=== PATIENT | female | born 1990 ===

== ENCOUNTER 2017-04-09 12:19 | Emergency (ER) | payer MEDICAID ==
[2017-04-09 12:19] VITALS: BMI 24.9
[2017-04-09 12:26] VITALS: BP 125/80; PULSE 86; RESP 16; TEMP 98.3; O2SAT 100
--- NOTE | 2017-04-09 12:38 | ED PDOC ---
HPI: CCC, URI, Sore Throat Time Seen by Provider: 04/09/17 12:32 Chief Complaint (Nursing): ENT Problem History Per: Patient Additional Complaint(s): Pt. states for the past 3 days she's had a sore throat along with losing her voice. States that she has not taken any medications to help relieve symptoms. Denies fever, cough, congestion, rash, abdominal pain, sick contacts, recent travel. Past Medical History Reviewed: Historical Data, Nursing Documentation, Vital Signs Vital Signs: Last Vital Signs Temp 98.3 F 04/09/17 12:23 Pulse 86 04/09/17 12:23 Resp 16 04/09/17 12:23 BP 125/80 04/09/17 12:23 Pulse Ox 100 04/09/17 12:37 - Medical History PMH: Asthma - Family History Family History: States: Unknown Family Hx - Home Medications Home Medications: Ambulatory Orders Medication Instructions Recorded Albuterol Sulfate [Albuterol 3 ml IH QID PRN #30 roxy 09/25/14 Sulfate 2.5mg/3 ml 0.083%] Oseltamivir [Tamiflu] 75 mg PO DAILY 7 Days 09/25/14 Albuterol Sulfate [Ventolin Hfa] 2 puff IH QID PRN #1 unit 06/21/15 Amoxicillin [Amoxil] 875 mg PO BID #14 tab 09/14/15 Loratadine/Pseudoephedrine S 1 t12 PO BID #20 t12 09/14/15 [Claritin-D 12Hr 5 mg-120 mg] Azithromycin [Zithromax Z-Jose] 250 mg PO DAILY #5 tab 12/01/15 Dextromethorphan HBr [Cough 15 mg PO BID #10 capsule 12/01/15 Control] Albuterol HFA [Ventolin HFA 90 2 puff IH [id number] PRN #60 puff 08/12/16 mcg/actuation (8 g)] Naproxen 500 mg PO BID PRN #30 tab 08/12/16 Cephalexin [Keflex] 1 tab PO QID #28 capsule 11/12/16 Naproxen [Naprosyn] 500 mg PO BID PRN #30 tab 04/09/17 - Allergies Allergies/Adverse Reactions: Allergies Allergy/AdvReac Type Severity Reaction Status Date / Time fruits Allergy URTICARIA Uncoded 04/09/17 12:23 Review of Systems ROS Statement: Except As Marked, All Systems Reviewed And Found Negative ENT: Positive for: Throat Pain Physical Exam - Physical Exam Appears: Positive for: Well, Non-toxic, No Acute Distress Skin: Positive for: Normal Color, Warm. Negative for: Rash Eye Exam: Positive for: EOMI, Normal appearance, PERRL ENT: Positive for: TM Is/Are (non-erythematous, non-bulging b/l), Pharyngeal Erythema. Negative for: Nasal Congestion, Tonsillar Exudate, Tonsillar Swelling Neck: Positive for: Normal, Painless ROM Cardiovascular/Chest: Positive for: Regular Rate, Rhythm Respiratory: Positive for: Normal Breath Sounds. Negative for: Stridor Gastrointestinal/Abdominal: Positive for: Normal Exam, Soft. Negative for: Tenderness, Organomegaly Neurologic/Psych: Positive for: Alert, Oriented. Negative for: Aphasia, Facial Droop - ECG O2 Sat by Pulse Oximetry: 100 - Progress ED Course And Treament: Rapid strep: negative. Disposition - Clinical Impression Clinical Impression: Viral pharyngitis - Patient ED Disposition Is Patient to be Admitted: No - Disposition Referrals: [facility] [Outside] Disposition: Routine/Home Disposition Time: 13:28 Condition: STABLE Additional Instructions: Drink plenty of fluids. Do warm salt water gargles. Voice rest. Follow up with [facility] for further evaluation. Prescriptions: Naproxen [Naprosyn] 500 mg PO BID PRN #30 tab PRN Reason: Pain Instructions: Viral Syndrome (ED) Forms: [facility] ED School/Work Excuse Print Language: GABONESE
== END 2017-04-09 13:47 | disposition home or self-care (01) ==
LOC: H.ER 12:19
DX: J02.8 Acute pharyngitis due to other specified organisms (principal); J45.909 Unspecified asthma, uncomplicated

== ENCOUNTER 2017-06-15 11:48 | Emergency (ER) | payer MEDICAID ==
[2017-06-15 11:48] VITALS: BMI 24.9
[2017-06-15 12:04] VITALS: TEMP 97
[2017-06-15] MEDS ORDERED: Alum-Mag Hydrox-Simethicone Susp (30 mL) PO ONE (12:15)
[2017-06-15] MEDS ORDERED: Sodium Chloride 0.9% 1,000 ML IV STA (12:15)
--- NOTE | 2017-06-15 12:19 | ED PDOC ---
HPI: General Adult Time Seen by Provider: 06/15/17 12:06 Chief Complaint (Nursing): Abdominal Pain History Per: Patient Additional Complaint(s): Pt. states for the past 4 days she's had a constant sharp non-radiating epigastric pain. Reports pain is worse after eating. She has taken Pepto Bismol without any relief. Denies N/V/D, chest pain, SOB, fever, back pain. Last BM was today and was normal. Past Medical History Reviewed: Historical Data, Nursing Documentation, Vital Signs Vital Signs: Last Vital Signs Temp 97.0 F L 06/15/17 12:02 Pulse 101 H 06/15/17 12:02 Resp 16 06/15/17 12:02 BP 122/71 06/15/17 12:02 Pulse Ox 99 06/15/17 13:25 - Medical History PMH: Asthma - Surgical History Other surgeries: laser kidney surgery @ 7 y/o for frequent UTIs - Family History Family History: States: No Known Family Hx - Social History Current smoker - smoking cessation education provided: Yes SMOKER/PACKS PER DAY:: 1 (x 10 years) Alcohol: Other (7 drinks per week) - Home Medications Home Medications: Ambulatory Orders Medication Instructions Recorded Albuterol Sulfate [Albuterol 3 ml IH QID PRN #30 roxy 09/25/14 Sulfate 2.5mg/3 ml 0.083%] Oseltamivir [Tamiflu] 75 mg PO DAILY 7 Days 09/25/14 Albuterol Sulfate [Ventolin Hfa] 2 puff IH QID PRN #1 unit 06/21/15 Amoxicillin [Amoxil] 875 mg PO BID #14 tab 09/14/15 Loratadine/Pseudoephedrine S 1 t12 PO BID #20 t12 09/14/15 [Claritin-D 12Hr 5 mg-120 mg] Azithromycin [Zithromax Z-Jose] 250 mg PO DAILY #5 tab 12/01/15 Dextromethorphan HBr [Cough 15 mg PO BID #10 capsule 12/01/15 Control] Albuterol HFA [Ventolin HFA 90 2 puff IH [id number] PRN #60 puff 08/12/16 mcg/actuation (8 g)] Naproxen 500 mg PO BID PRN #30 tab 08/12/16 Cephalexin [Keflex] 1 tab PO QID #28 capsule 11/12/16 Naproxen [Naprosyn] 500 mg PO BID PRN #30 tab 04/09/17 Famotidine 1 - 2 tab PO DAILY PRN #15 tablet 06/15/17 - Allergies Allergies/Adverse Reactions: Allergies Allergy/AdvReac Type Severity Reaction Status Date / Time fruits Allergy URTICARIA Uncoded 04/09/17 12:23 Review of Systems ROS Statement: Except As Marked, All Systems Reviewed And Found Negative Gastrointestinal: Positive for: Abdominal Pain Physical Exam - Physical Exam Appears: Positive for: Well, Non-toxic, No Acute Distress Skin: Positive for: Normal Color, Warm. Negative for: Rash Eye Exam: Positive for: Normal appearance. Negative for: Scleral icterus Cardiovascular/Chest: Positive for: Regular Rate, Rhythm, Chest Non Tender Respiratory: Positive for: CNT, Normal Breath Sounds Gastrointestinal/Abdominal: Positive for: Normal Exam, Bowel Sounds, Soft, Other (Negative Mohan's sign). Negative for: Tenderness, Organomegaly, Distended Back: Positive for: Normal Inspection. Negative for: L CVA Tenderness, R CVA Tenderness Extremity: Positive for: Normal ROM Neurologic/Psych: Positive for: Alert, Oriented - Laboratory Results Result Diagrams: 06/15/17 12:44 06/15/17 12:44 Urine POC: Negative Urine dip results: Positive for: Blood (moderate (pt finished her menstruation yesterday)). Negative for: Leukocyte Esterase, Nitrate, Ketones, Glucose, Bilirubin, Protein - ECG O2 Sat by Pulse Oximetry: 99 - Progress ED Course And Treament: Labs ordered. Pepcid 20mg IV, maalox 30ml PO, viscous lidocaine 15ml PO, IV NS bolus x 1 ordered. Re-evaluation Time: 13:33 (Abd remains soft and non-tender. ) Condition: Re-examined, Improved Disposition - Clinical Impression Clinical Impression: Dyspepsia - Patient ED Disposition Is Patient to be Admitted: No - Disposition Referrals: Brijesh GRAHAM,MD [place] [Medical Doctor] - Disposition: Routine/Home Disposition Time: 13:35 Condition: IMPROVED Prescriptions: Famotidine 1 - 2 tab PO DAILY PRN #15 tablet PRN Reason: Dyspepsia Instructions: Gastritis (ED) Forms: [email or web address] (Syrian) Print Language: WELSH
[2017-06-15] MEDS ORDERED: Alum-Mag Hydrox-Simethicone Susp (30 mL) ONE (12:27)
[2017-06-15 12:51] LABS: BASO # 0.1 K/uL (0.0-0.2); BASO % 0.7 % (0.0-2.0); EOS # 0.4 K/uL (0.0-0.7); HEMOGLOBIN 13.3 g/dL (12.0-16.0); LYMPH # 2.6 K/uL (1.0-4.3); LYMPH % 22.2 % (20.0-40.0); MEAN CELL VOLUME 92.2 fl (81.0-99.0); MEAN CORPUSCULAR HGB CONC 33.6 g/dL (33.0-37.0); MEAN PLATELET VOLUME 9.5 fl (7.2-11.7); MONO # 0.7 K/uL (0.0-0.8); MONO % 5.7 % (0.0-10.0); NEUT # 8.1 K/uL (1.8-7.0); NEUT % 68.4 % (50.0-75.0); NRBC % 0.1 % (0.0-0.0); RBC 4.28 Mil/uL (3.80-5.20); RED CELL DISTRIBUTION WIDTH 12.8 % (11.5-14.5); WHITE BLOOD COUNT 11.9 K/uL (4.8-10.8)
[2017-06-15 13:02] LABS: ALB/GLOB RATIO 1.6 (1.0-2.1); ALBUMIN 4.5 g/dL (3.5-5.0); ALT/SGPT 45 U/L (9-52); AST/SGOT 29 U/L (14-36); BLOOD UREA NITROGEN 11 mg/dl (7-17); CALCIUM 9.7 mg/dL (8.4-10.2); GFR AFRICAN-AMERICAN > 60; GFR NON-AFRICAN AMERICAN > 60; LIPASE 80 U/L (23-300)
[2017-06-15 13:44] VITALS: BP 121/68; PULSE 82; RESP 18; O2SAT 98
== END 2017-06-15 13:43 | disposition home or self-care (01) ==
LOC: H.ER 11:48
DX: R10.13 Epigastric pain (principal)

== ENCOUNTER 2017-07-24 15:57 | Emergency (ER) | payer MEDICAID ==
[2017-07-24 15:57] VITALS: BMI 24.9
[2017-07-24 16:14] VITALS: BP 112/65; PULSE 70; RESP 16; TEMP 97.1; O2SAT 99
--- NOTE | 2017-07-24 16:51 | ED PDOC ---
HPI: General Adult Time Seen by Provider: 07/24/17 16:18 Chief Complaint (Nursing): Abnormal Skin Integrity Chief Complaint (Provider): Infection on Left Hand History Per: Patient History/Exam Limitations: no limitations Onset/Duration Of Symptoms: Days (x1 week) Current Symptoms Are (Timing): Still Present Additional Complaint(s): Trista Sylvester is a 27 year old female that presents to the ED with a chief complaint of throbbing pain coming from the site of a new tattoo that began one week ago. Patient reports that yellow drainage has been coming from the site, and that her automotive artist instructed her to use Neosporin on the site yesterday. Past Medical History Reviewed: Historical Data, Nursing Documentation, Vital Signs Vital Signs: Last Vital Signs Temp 97.1 F L 07/24/17 16:12 Pulse 70 07/24/17 16:12 Resp 16 07/24/17 16:12 BP 112/65 07/24/17 16:12 Pulse Ox 99 07/24/17 16:56 - Medical History PMH: Asthma - Family History Family History: States: Unknown Family Hx - Home Medications Home Medications: Ambulatory Orders Medication Instructions Recorded Albuterol Sulfate [Albuterol 3 ml IH QID PRN #30 roxy 09/25/14 Sulfate 2.5mg/3 ml 0.083%] Oseltamivir [Tamiflu] 75 mg PO DAILY 7 Days cap 09/25/14 Albuterol Sulfate [Ventolin Hfa] 2 puff IH QID PRN #1 unit 06/21/15 Amoxicillin [Amoxil] 875 mg PO BID #14 tab 09/14/15 Loratadine/Pseudoephedrine S 1 t12 PO BID #20 t12 09/14/15 [Claritin-D 12Hr 5 mg-120 mg] Azithromycin [Zithromax Z-Jose] 250 mg PO DAILY #5 tab 12/01/15 Dextromethorphan HBr [Cough 15 mg PO BID #10 capsule 12/01/15 Control] Albuterol HFA [Ventolin HFA 90 2 puff IH [id number] PRN #60 puff 08/12/16 mcg/actuation (8 g)] Naproxen 500 mg PO BID PRN #30 tab 08/12/16 Cephalexin [Keflex] 1 tab PO QID #28 capsule 11/12/16 Naproxen [Naprosyn] 500 mg PO BID PRN #30 tab 04/09/17 Famotidine 1 - 2 tab PO DAILY PRN #15 tablet 06/15/17 Cephalexin [Keflex] 500 mg PO BID #14 capsule 07/24/17 - Allergies Allergies/Adverse Reactions: Allergies Allergy/AdvReac Type Severity Reaction Status Date / Time fruits Allergy URTICARIA Uncoded 04/09/17 12:23 Review of Systems Musculoskeletal: Positive for: Hand Pain (throbbing pain on left hand) Physical Exam - Reviewed Nursing Documentation Reviewed: Yes Vital Signs Reviewed: Yes - Physical Exam Appears: Positive for: Non-toxic, No Acute Distress Head Exam: Positive for: ATRAUMATIC, NORMOCEPHALIC Skin: Positive for: Normal Color, Warm Eye Exam: Positive for: Normal appearance, EOMI, PERRL Pulses-Radial (L): 2+ Pulses-Radial (R): 2+ Extremity: Positive for: Normal ROM, Other (No surrounding erythema, drainage, or signs of infection at site of new tattoo on left hand.). Negative for: Swelling Neurologic/Psych: Positive for: Alert, Oriented. Negative for: Motor/Sensory Deficits - ECG O2 Sat by Pulse Oximetry: 99 (RA) Pulse Ox Interpretation: Normal Medical Decision Making Medical Decision Making: Impression: Healing Wound Plan: * Patient showed picture of left hand that she took yesterday, before she began using Neosporin. In the picture, site of tattoo on left hand had surrounding erythema and appeared infected. Patient's hand today looks significantly improved in comparison to the picture from yesterday, as there is no longer any surrounding erythema, drainage, or edema. Scribe Attestation: Documented by Shalini Palomares, acting as a scribe for Shawna Randall PA-C. Provider Scribe Attestation: All medical record entries made by the Ana were at my direction and personally dictated by me. I have reviewed the chart and agree that the record accurately reflects my personal performance of the history, physical exam, medical decision making, and the department course for this patient. I have also personally directed, reviewed, and agree with the discharge instructions and disposition. Disposition - Clinical Impression Clinical Impression: Tattoo reaction - Disposition Disposition: Routine/Home Disposition Time: 16:47 Condition: STABLE Prescriptions: Cephalexin [Keflex] 500 mg PO BID #14 capsule Instructions: Acute Wound Care (ED) Forms: [employer] (Iraqi), [facility] ED School/Work Excuse
== END 2017-07-24 18:20 | disposition home or self-care (01) ==
LOC: H.ER 15:57
DX: L81.8 Other specified disorders of pigmentation (principal)

== ENCOUNTER 2017-07-29 17:34 | Emergency (ER) | payer MEDICAID ==
[2017-07-29 17:34] VITALS: BMI 24.9
[2017-07-29 17:45] VITALS: BP 149/94; PULSE 93; RESP 16; TEMP 98.4; O2SAT 100
[2017-07-29] MEDS ORDERED: cefTRIAXone (Rocephin) 250 mg Inj IM ONE (18:03)
--- NOTE | 2017-07-29 18:35 | ED PDOC ---
HPI: Abdomen History Per: Patient History/Exam Limitations: no limitations Onset/Duration Of Symptoms: Days Outside of [place] travel?: No Current Symptoms Are (Timing): Still Present Severity: Moderate Pain Scale Rating Of: 5 Location Of Pain/Discomfort: Suprapubic Quality Of Discomfort: Cramping Associated Symptoms: denies: Fever, Chills, Nausea, Vomiting, Diarrhea, Back Pain, Urinary Symptoms Exacerbating Factors: None Alleviating Factors: OTC Meds Last Bowel Movement: Today Abnormal Vaginal Bleeding: No Last Menstral Period: 3 weeks ago : 4 Para: 1 Miscarriage: 3 (2 miscarriage, 1 elective ) <Stewart Long - Last Filed: 07/29/17 19:01> <Dipesh Noriega III - Last Filed: 07/29/17 20:05> Time Seen by Provider: 07/29/17 18:33 Chief Complaint (Nursing): Abdominal Pain Additional Complaint(s): CC: abdominal pain HPI: 27 y/o woman w/ pmh of mild persistent asthma presents to the ED w / abdominal pain. The patient reports pain is in the suprapubic region, occurring for 1 week, cramping in nature, non-radiating, 5/10 in intensity, intermittent, not wrosened by anything, and relieved with tylenol (last dose was yesterday). Patient denies associated fever, nausea, vomiting, diarrhea, dysuria, hematuria, vaginal bleed, vaginal discharge, pruritus, or rashes. The patient reports normal bowel movement today. Patient reports LMP was 3 weeks ago and is regular. The patient reports sexual activity with both men and women , uses condoms most of the time, and denies previous history of STDs. Patient reports that she had intercourse with a partner 2-3 weeks ago that had just tested positive for gonorrhea. The patient denies sexual activity since that encounter. The patient denies headaches, chest pain, and SOB. ROS: 12 points assessed and negative unless otherwise reported in HPI allergies: NKDA PMD: [facility] PMH: mild persistent asthma meds: advair daily, albuterol prn PSH: laser removal of kidney stone 13 years ago SOC: smokes 1 pack/day, consumes alcohol 3x/week, denies illegal drugs (Stewart Long) Supervising Attending Note <Stewart Long - Last Filed: 07/29/17 19:01> - Attestation: I have fully participated in the care of the patient.: Yes I have reviewed all pertinent clinical information: Yes <Dipesh Noriega III - Last Filed: 07/29/17 20:05> - Notes: Notes:: empirically treated for G/C, chlamydia given clinical history. Followup [employer]. ( Dipesh Noriega III) Past Medical History Reviewed: Historical Data, Nursing Documentation, Vital Signs - Medical History PMH: Asthma - Family History Family History: States: Unknown Family Hx <Stewart Long - Last Filed: 07/29/17 19:01> <Dipesh Noriega III - Last Filed: 07/29/17 20:05> Vital Signs: Last Vital Signs Temp 98.4 F 07/29/17 17:42 Pulse 93 H 07/29/17 17:42 Resp 16 07/29/17 17:42 BP 149/94 H 07/29/17 17:42 Pulse Ox 100 07/29/17 19:02 - Home Medications Home Medications: Ambulatory Orders Medication Instructions Recorded Albuterol Sulfate [Albuterol 3 ml IH QID PRN #30 roxy 09/25/14 Sulfate 2.5mg/3 ml 0.083%] Oseltamivir [Tamiflu] 75 mg PO DAILY 7 Days cap 09/25/14 Albuterol Sulfate [Ventolin Hfa] 2 puff IH QID PRN #1 unit 06/21/15 Amoxicillin [Amoxil] 875 mg PO BID #14 tab 09/14/15 Loratadine/Pseudoephedrine S 1 t12 PO BID #20 t12 09/14/15 [Claritin-D 12Hr 5 mg-120 mg] Azithromycin [Zithromax Z-Jose] 250 mg PO DAILY #5 tab 12/01/15 Dextromethorphan HBr [Cough 15 mg PO BID #10 capsule 12/01/15 Control] Albuterol HFA [Ventolin HFA 90 2 puff IH [id number] PRN #60 puff 08/12/16 mcg/actuation (8 g)] Naproxen 500 mg PO BID PRN #30 tab 08/12/16 Cephalexin [Keflex] 1 tab PO QID #28 capsule 11/12/16 Naproxen [Naprosyn] 500 mg PO BID PRN #30 tab 04/09/17 Famotidine 1 - 2 tab PO DAILY PRN #15 tablet 06/15/17 Cephalexin [Keflex] 500 mg PO BID #14 capsule 07/24/17 Doxycycline Monohydrate 100 mg PO BID #14 capsule 07/29/17 - Allergies Allergies/Adverse Reactions: Allergies Allergy/AdvReac Type Severity Reaction Status Date / Time fruits Allergy URTICARIA Uncoded 07/29/17 17:41 Review of Systems ROS Statement: Except As Marked, All Systems Reviewed And Found Negative Constitutional: Negative for: Fever, Chills, Sweats, Malaise Cardiovascular: Negative for: Chest Pain, Palpitations, Light Headedness Respiratory: Negative for: Cough, Shortness of Breath, SOB with Exertion, Pleuritic Pain, Wheezing Gastrointestinal: Positive for: Abdominal Pain. Negative for: Nausea, Vomiting , Diarrhea Genitourinary Female: Negative for: Dysuria, Frequency, Hematuria, Vaginal Discharge, Vaginal Bleeding, Rash Musculoskeletal: Negative for: Back Pain Skin: Negative for: Rash Neurological: Negative for: Seizures, Altered Mental Status, Headache, Dizziness <Stewart Long - Last Filed: 07/29/17 19:01> Physical Exam - Reviewed Nursing Documentation Reviewed: Yes Vital Signs Reviewed: Yes - Physical Exam Appears: Positive for: No Acute Distress Head Exam: Positive for: ATRAUMATIC, NORMAL INSPECTION, NORMOCEPHALIC Skin: Positive for: Normal Color, Warm, Dry Eye Exam: Positive for: Normal appearance, EOMI, PERRL ENT: Positive for: Normal ENT Inspection Neck: Positive for: Normal, Painless ROM, Supple Cardiovascular/Chest: Positive for: Regular Rate, Rhythm, Chest Non Tender. Negative for: Bradycardia Respiratory: Positive for: Normal Breath Sounds. Negative for: Decreased Breath Sounds, Accessory Muscle Use, Crackles, Rales, Rhonchi, Wheezing, Respiratory Distress Pulses-Carotid (L): 2+ Pulses-Carotid (R): 2+ Pulses-Radial (L): 2+ Pulses-Radial (R): 2+ Gastrointestinal/Abdominal: Positive for: Bowel Sounds, Soft, Tenderness ( suprapubic tenderness). Negative for: Distended Pelvic Exam: Positive for: External Exam Normal, Speculum Exam Normal, Bimanual Exam Normal, No Cerv. Motion Tender, No Masses, Other (surgical instrument repair specialist present Dr. Bentley). Negative for: Active Bleeding, Blood, Cervicitis, Discharge, Lesions, Mass, Tender W/Cervical Motion, Tender Adnexa, Tender Uterus, Ulcers Back: Negative for: L CVA Tenderness, R CVA Tenderness Extremity: Negative for: Tenderness, Pedal Edema, Calf Tenderness, Deformity, Swelling Neurologic/Psych: Positive for: Alert, Oriented <Stewart Long - Last Filed: 07/29/17 19:01> - ECG O2 Sat by Pulse Oximetry: 100 <Stewart Long - Last Filed: 07/29/17 19:01> - Laboratory Results Result Diagrams: 07/29/17 19:18 07/29/17 19:18 <Dipesh Noriega III - Last Filed: 07/29/17 20:05> Medical Decision Making <Stewart Long - Last Filed: 07/29/17 19:01> <Dipesh Noriega III - Last Filed: 07/29/17 20:05> Medical Decision Makin27 y/o woman w/ pmh of mild persistent asthma presents to the ED w/ abdominal pain. Most likely due to gonorrhea infection CBC w/ diff: CMP: UA: urine : GC cervical probe: vaginal culture: Rocephin 250 mg IV Azithromycin 1 gm PO (Stewart Long) Disposition Discussed With : Dipesh Noriega III Counseled Patient/Family Regarding: Studies Performed, Diagnosis, Need For Followup - Disposition Disposition: Transfer of Care Disposition Time: 19:02 Patient Signed Over To: Dipesh Noriega III Present On Arrival: None <Stewart Long - Last Filed: 07/29/17 19:01> <Dipesh Noriega III - Last Filed: 07/29/17 20:05> - Clinical Impression Clinical Impression: Pelvic pain, Screen for STD (sexually transmitted disease), Abdominal tenderness - Disposition [facility] Condition: STABLE Additional Instructions: Have all partners tested and treated before resuming sexual activity. Return to ER for any worse or new symptoms. STD testing done today- you will only receive a call (to the phone number you provided) if test(s) are positive. Prescriptions: Doxycycline Monohydrate 100 mg PO BID #14 capsule Instructions: Sexually Transmitted Diseases (ED), Pelvic Pain in Women (ED) Forms: [employer] (Chinese)
[2017-07-29] MEDS ORDERED: cefTRIAXone (Rocephin) 250 mg Inj ONE (19:03)
[2017-07-29 19:25] LABS: BASO % 0.4 % (0.0-2.0); EOS # 0.2 K/uL (0.0-0.7); EOS % 1.8 % (0.0-4.0); HEMATOCRIT 41.1 % (34.0-47.0); LYMPH # 2.3 K/uL (1.0-4.3); LYMPH % 19.6 % (20.0-40.0); MEAN CELL VOLUME 94.8 fl (81.0-99.0); MEAN CORPUSCULAR HEMOGLOBIN 31.5 pg (27.0-31.0); MEAN CORPUSCULAR HGB CONC 33.2 g/dL (33.0-37.0); MEAN PLATELET VOLUME 9.3 fl (7.2-11.7); MONO # 0.6 K/uL (0.0-0.8); MONO % 5.5 % (0.0-10.0); NEUT # 8.4 K/uL (1.8-7.0); NEUT % 72.7 % (50.0-75.0); RED CELL DISTRIBUTION WIDTH 13.7 % (11.5-14.5); WHITE BLOOD COUNT 11.5 K/uL (4.8-10.8)
[2017-07-29 19:34] LABS: ALB/GLOB RATIO 1.6 (1.0-2.1); ALKALINE PHOSPHATASE 69 U/L (38-126); ALT/SGPT 36 U/L (9-52); AST/SGOT 22 U/L (14-36); BILIRUBIN,TOTAL 0.5 mg/dl (0.2-1.3); BLOOD UREA NITROGEN 13 mg/dl (7-17); CALCIUM 9.6 mg/dL (8.4-10.2); CARBON DIOXIDE 23 mmol/L (22-30); CHLORIDE 102 mmol/L (98-107); GFR AFRICAN-AMERICAN > 60; GLUCOSE,RANDOM 100 mg/dL (65-105); POTASSIUM 3.8 MMOL/L (3.6-5.0); SODIUM 140 mmol/l (132-148); TOTAL PROTEIN 7.2 G/DL (6.3-8.2)
[2017-07-29 19:36] LABS: URINE BILIRUBIN NEGATIVE (NEGATIVE); URINE BLOOD SMALL (NEGATIVE); URINE COLOR YELLOW (YELLOW); URINE GLUCOSE (UA) NEG (Normal); URINE KETONE NEGATIVE (NEGATIVE); URINE LEUKOCYTE ESTERASE NEG Leu/uL (Negative); URINE PROTEIN NEGATIVE (NEGATIVE)
[2017-07-29 19:43] LABS: RBC URINE 13 /hpf (0-3); WBC URINE 3 /hpf (0-5)
== END 2017-07-29 20:10 | disposition home or self-care (01) ==
LOC: H.ER 17:34
DX: R10.2 Pelvic and perineal pain (principal); Z11.3 Encounter for screening for infections with a predominantly sexual mode of transmission
CPT/HCPCS: 80053; 81003; 81025; 85025; 87070; 87491; 87591; 96372; 99283; J0696

== ENCOUNTER 2017-09-11 11:05 | Emergency (ER) | payer MEDICAID ==
[2017-09-11 11:05] VITALS: BMI 24.9
[2017-09-11 11:29] VITALS: BP 114/70; PULSE 70; RESP 16; TEMP 97; O2SAT 99
--- NOTE | 2017-09-11 12:07 | ED PDOC ---
Lower Extremity Pain/Injury Time Seen by Provider: 09/11/17 11:35 Chief Complaint (Nursing): Lower Extremity Problem/Injury Chief Complaint (Provider): Left knee injury History Per: Patient History/Exam Limitations: no limitations Onset/Duration Of Symptoms: Days (1) Current Symptoms Are (Timing): Still Present Severity: Mild Additional Complaint(s): 27 year old female complains of left knee pain after twisting it while getting up yesterday. Today pain is worse with standing or walking. Denies numbness, weakness or other associated injury. - Knee Description Of Injury: Twisted Past Medical History Reviewed: Historical Data, Nursing Documentation, Vital Signs Vital Signs: Last Vital Signs Temp 97.0 F L 09/11/17 11:25 Pulse 70 09/11/17 11:25 Resp 16 09/11/17 11:25 BP 114/70 09/11/17 11:25 Pulse Ox 99 09/11/17 11:25 - Medical History PMH: Asthma - Surgical History Other surgeries: Laser kidney surgery - Family History Family History: States: Unknown Family Hx - Social History Current smoker - smoking cessation education provided: Yes Ex-Smoker (has not smoked in the last 12 months): No Alcohol: Social Drugs: Denies - Home Medications Home Medications: Ambulatory Orders Medication Instructions Recorded Albuterol Sulfate [Albuterol 3 ml IH QID PRN #30 roxy 09/25/14 Sulfate 2.5mg/3 ml 0.083%] Oseltamivir [Tamiflu] 75 mg PO DAILY 7 Days cap 09/25/14 Albuterol Sulfate [Ventolin Hfa] 2 puff IH QID PRN #1 unit 06/21/15 Amoxicillin [Amoxil] 875 mg PO BID #14 tab 09/14/15 Loratadine/Pseudoephedrine S 1 t12 PO BID #20 t12 09/14/15 [Claritin-D 12Hr 5 mg-120 mg] Azithromycin [Zithromax Z-Jose] 250 mg PO DAILY #5 tab 12/01/15 Dextromethorphan HBr [Cough 15 mg PO BID #10 capsule 12/01/15 Control] Albuterol HFA [Ventolin HFA 90 2 puff IH [id number] PRN #60 puff 08/12/16 mcg/actuation (8 g)] Naproxen 500 mg PO BID PRN #30 tab 08/12/16 Cephalexin [Keflex] 1 tab PO QID #28 capsule 11/12/16 Naproxen [Naprosyn] 500 mg PO BID PRN #30 tab 04/09/17 Famotidine 1 - 2 tab PO DAILY PRN #15 tablet 06/15/17 Cephalexin [Keflex] 500 mg PO BID #14 capsule 07/24/17 Doxycycline Monohydrate 100 mg PO BID #14 capsule 07/29/17 Ibuprofen [Motrin] 600 mg PO Q8 #30 tab 09/11/17 - Allergies Allergies/Adverse Reactions: Allergies Allergy/AdvReac Type Severity Reaction Status Date / Time fruits Allergy URTICARIA Uncoded 07/29/17 17:41 Review of Systems ROS Statement: Except As Marked, All Systems Reviewed And Found Negative Musculoskeletal: Positive for: Other (Left knee pain) Physical Exam - Reviewed Nursing Documentation Reviewed: Yes Vital Signs Reviewed: Yes - Physical Exam Appears: Positive for: Well, Non-toxic, No Acute Distress Head Exam: Positive for: ATRAUMATIC, NORMAL INSPECTION, NORMOCEPHALIC Skin: Positive for: Normal Color, Warm, Dry Eye Exam: Positive for: Normal appearance Neck: Positive for: Normal, Painless ROM Extremity: Positive for: Other (Left knee with mild tenderness to anterior and medial aspect, no swelling, no ecchymosis. Pain with full extension. ) Neurologic/Psych: Positive for: Alert, Oriented (x3) - ECG O2 Sat by Pulse Oximetry: 99 (RA) Pulse Ox Interpretation: Normal Medical Decision Making Medical Decision Making: Time: 11:35 Initial impression: Left knee injury Initial plan: Left knee x-ray Progress: Xray reviewed by me showing no acute fracture or dislocation, small joint effusion. RN applied Knee immobilizer and provided crutches Patient advised to rest, ice and to take Ibuprofen. May follow up with ortho if symptoms persist ~ Scribe Attestation: Documented by Kristin Moulton, acting as a scribe for RICH Allen. Provider Scribe Attestation: All medical record entries made by the Scribe were at my direction and personally dictated by me. I have reviewed the chart and agree that the record accurately reflects my personal performance of the history, physical exam, medical decision making, and the department course for this patient. I have also personally directed, reviewed, and agree with the discharge instructions and disposition. Disposition - Clinical Impression Clinical Impression: Left knee sprain - Patient ED Disposition Is Patient to be Admitted: No Counseled Patient/Family Regarding: Studies Performed, Diagnosis, Need For Followup, Rx Given - Disposition Referrals: Ganesh Marley MD [Staff Provider] - Disposition: Routine/Home Disposition Time: 12:36 Condition: STABLE Additional Instructions: Your xray was normal, no fracture. Please apply ice to area 15 minutes three times a day. Take Motrin as needed for pain every 6 hours, with food to not upset stomach. Follow up with orthopedic if pain persists over one week. Prescriptions: Ibuprofen [Motrin] 600 mg PO Q8 #30 tab Instructions: Knee Sprain (ED) Forms: [employer] ([place]odian), [facility] ED School/Work Excuse - POA Present On Arrival: None
--- NOTE | 2017-09-11 12:15 | RAD ---
PROCEDURE: Left Knee Radiographs. HISTORY: COMPARISON: None available. FINDINGS: BONES: No acute displaced fracture. 1.3 x 0.5 cm sclerotic focus within the distal femur, possibly bone island. JOINTS: No dislocation. JOINT EFFUSION: Small suprapatellar joint effusion. OTHER FINDINGS: None. IMPRESSION: Small suprapatellar joint effusion.
== END 2017-09-11 12:44 | disposition home or self-care (01) ==
LOC: H.ER 11:05
DX: S83.92XA Sprain of unspecified site of left knee, initial encounter (principal); X50.9XXA Other and unspecified overexertion or strenuous movements or postures, initial encounter; Y92.89 Other specified places as the place of occurrence of the external cause; J45.909 Unspecified asthma, uncomplicated

== ENCOUNTER 2018-01-17 04:47 | Emergency (ER) | payer SELFPAY ==
[2018-01-17 05:00] VITALS: BMI 25.7
[2018-01-17 05:11] VITALS: RESP 18
[2018-01-17] MEDS ORDERED: Sodium Chloride 0.9% 1,000 ML IV STA (05:27)
--- NOTE | 2018-01-17 05:44 | ED PDOC ---
HPI: Abdomen Time Seen by Provider: 01/17/18 05:18 Chief Complaint (Nursing): Abdominal Pain Chief Complaint (Provider): Abdominal Pain History Per: Patient History/Exam Limitations: no limitations Current Symptoms Are (Timing): Still Present Additional Complaint(s): 27 y/o female presents to the ED with lower abdominal pain x 3 hours. Pain woke her up from sleep and is worse when she moves. Pain is sharp and stabbing and radiates to the back. Last normal menstrual period was 2 weeks ago. Denies nausea, fever, cough, shortness of breath or any further medical complaints. Past Medical History Vital Signs: Last Vital Signs Temp 98.1 F 01/17/18 10:39 Pulse 66 01/17/18 10:39 Resp 18 01/17/18 10:39 BP 91/56 L 01/17/18 10:39 Pulse Ox 99 01/17/18 11:19 - Medical History PMH: Asthma - Surgical History Surgical History: No Surg Hx - Family History Family History: States: Unknown Family Hx - Social History Current smoker - smoking cessation education provided: Yes Alcohol: Occasional Drugs: Denies - Home Medications Home Medications: Ambulatory Orders Medication Instructions Recorded Albuterol Sulfate [Albuterol 3 ml IH QID PRN #30 roxy 09/25/14 Sulfate 2.5mg/3 ml 0.083%] Oseltamivir [Tamiflu] 75 mg PO DAILY 7 Days cap 09/25/14 Albuterol Sulfate [Ventolin Hfa] 2 puff IH QID PRN #1 unit 06/21/15 Amoxicillin [Amoxil] 875 mg PO BID #14 tab 09/14/15 Loratadine/Pseudoephedrine S 1 t12 PO BID #20 t12 09/14/15 [Claritin-D 12Hr 5 mg-120 mg] Azithromycin [Zithromax Z-Jose] 250 mg PO DAILY #5 tab 12/01/15 Dextromethorphan HBr [Cough 15 mg PO BID #10 capsule 12/01/15 Control] Albuterol HFA [Ventolin HFA 90 2 puff IH [id number] PRN #60 puff 08/12/16 mcg/actuation (8 g)] Naproxen 500 mg PO BID PRN #30 tab 08/12/16 Cephalexin [Keflex] 1 tab PO QID #28 capsule 11/12/16 Naproxen [Naprosyn] 500 mg PO BID PRN #30 tab 04/09/17 Famotidine 1 - 2 tab PO DAILY PRN #15 tablet 06/15/17 Cephalexin [Keflex] 500 mg PO BID #14 capsule 07/24/17 Doxycycline Monohydrate 100 mg PO BID #14 capsule 07/29/17 Ibuprofen [Motrin] 600 mg PO Q8 #30 tab 09/11/17 Tramadol HCl [Ultram] 50 mg PO TID PRN #15 tablet 01/17/18 - Allergies Allergies/Adverse Reactions: Allergies Allergy/AdvReac Type Severity Reaction Status Date / Time fruits Allergy URTICARIA Uncoded 01/17/18 05:00 Review of Systems ROS Statement: Except As Marked, All Systems Reviewed And Found Negative (As per HPI, otherwise negative) Constitutional: Negative for: Fever Respiratory: Negative for: Cough, Shortness of Breath Gastrointestinal: Positive for: Abdominal Pain (lower abdominal pain). Negative for: Nausea Physical Exam - Reviewed Nursing Documentation Reviewed: Yes Vital Signs Reviewed: Yes - Physical Exam Appears: Positive for: Well, Non-toxic, No Acute Distress Head Exam: Positive for: ATRAUMATIC, NORMAL INSPECTION, NORMOCEPHALIC Skin: Positive for: Normal Color, Warm, Dry Eye Exam: Positive for: EOMI, Normal appearance, PERRL ENT: Positive for: Normal ENT Inspection Neck: Positive for: Normal, Painless ROM, Supple Cardiovascular/Chest: Positive for: Regular Rate, Rhythm. Negative for: Murmur Respiratory: Positive for: Normal Breath Sounds. Negative for: Accessory Muscle Use, Respiratory Distress Gastrointestinal/Abdominal: Positive for: Tenderness (Suprapubic tenderness) Back: Positive for: Normal Inspection Extremity: Positive for: Normal ROM. Negative for: Deformity Neurologic/Psych: Positive for: Alert, Oriented (x3) - Laboratory Results Result Diagrams: 01/17/18 05:56 01/17/18 05:56 - ECG O2 Sat by Pulse Oximetry: 99 (RA) Pulse Ox Interpretation: Normal Medical Decision Making Medical Decision Making: Time: 05:26 Initial Impression: 27 y/o female with acute lower abdominal pain Plan: CMP Lipase Urine dipstick Urine CBC w/ differential Toradol 15mg IV Sodium chloride 1L IV Ondansetron 4mg IV Heplock insertion Urinalysis Transvaginal US Reevaluation Time: 07:00 Patient will be signed out to Dr. Zelaya pending labs and ultrasound. Scribe Attestation: Documented by Shay Lainez, acting as a scribe for Steve Ortiz MD. Scribe Attestation: All medical record entries made by the Scribe were at my direction and personally dictated by me. I have reviewed the chart and agree that the record accurately reflects my personal performance of the history, physical exam, medical decision making, and the department course for this patient. I have also personally directed, reviewed, and agree with the discharge instructions and disposition. Disposition - Clinical Impression Clinical Impression: Left ovarian cyst - Disposition Referrals: [facility] [Outside] Disposition: Transfer of Care Disposition Time: 07:00 Condition: GOOD Additional Instructions: Take your medications as instructed. Follow up with your PCP in 2-3 days. Prescriptions: Tramadol HCl [Ultram] 50 mg PO TID PRN #15 tablet PRN Reason: Pain, Severe (8-10) Instructions: Ovarian Cysts Forms: [facility] ED School/Work Excuse
[2018-01-17 06:10] LABS: BASO # 0.1 K/uL (0.0-0.2); BASO % 0.9 % (0.0-2.0); EOS # 0.1 K/uL (0.0-0.7); EOS % 1.5 % (0.0-4.0); HEMOGLOBIN 13.4 g/dL (12.0-16.0); LYMPH # 1.8 K/uL (1.0-4.3); LYMPH % 19.9 % (20.0-40.0); MEAN CELL VOLUME 93.9 fl (81.0-99.0); MEAN CORPUSCULAR HEMOGLOBIN 31.8 pg (27.0-31.0); MEAN CORPUSCULAR HGB CONC 33.8 g/dL (33.0-37.0); MEAN PLATELET VOLUME 9.6 fl (7.2-11.7); MONO # 0.3 K/uL (0.0-0.8); MONO % 3.7 % (0.0-10.0); NEUT # 6.8 K/uL (1.8-7.0); RBC 4.22 Mil/uL (3.80-5.20); RED CELL DISTRIBUTION WIDTH 12.4 % (11.5-14.5); WHITE BLOOD COUNT 9.2 K/uL (4.8-10.8)
[2018-01-17 06:17] LABS: ALB/GLOB RATIO 1.5 (1.0-2.1); ALBUMIN 4.5 g/dL (3.5-5.0); ALT/SGPT 45 U/L (9-52); AST/SGOT 24 U/L (14-36); BLOOD UREA NITROGEN 14 mg/dl (7-17); GFR AFRICAN-AMERICAN > 60; GFR NON-AFRICAN AMERICAN > 60; LIPASE 64 U/L (23-300)
[2018-01-17 06:25] LABS: SQUAMOUS EPITHIAL < 1 /hpf (0-5); URINE BILIRUBIN NEGATIVE (NEGATIVE); URINE BLOOD SMALL (NEGATIVE); URINE CLARITY SLIGHTY-CLOUDY (Clear); URINE COLOR STRAW (YELLOW); URINE GLUCOSE (UA) NEG (Normal); URINE LEUKOCYTE ESTERASE NEG Leu/uL (Negative); URINE PROTEIN NEGATIVE (NEGATIVE); URINE UROBILINOGEN 0.2-1.0 mg/dL (0.2-1.0)
--- NOTE | 2018-01-17 07:18 | ED PDOC ---
- Laboratory Results Result Diagrams: 01/17/18 05:56 01/17/18 05:56 - ECG O2 Sat by Pulse Oximetry: 99 (RA) Pulse Ox Interpretation: Normal Medical Decision Making Medical Decision Making: Receiving sign out: Patient signed out to me by Dr. Ortiz at 0700 pending labs, ultrasound. Time: 1042 US Abdomen/Pelvis and Transvaginal FINDINGS: UTERUS: Measures 8.5 x 6.1 x 4.9 cm. Normal in size and appearance. No fibroid or other mass lesion seen. ENDOMETRIUM: Measures 10 mm in diameter. Unremarkable. CERVIX: No cervical abnormality identified. RIGHT OVARY: Measures 4.1 x 4.5 x 2.8 cm. No solid mass. Normal flow. A few small follicles are noted. LEFT OVARY: Measures 4.4 x 4.3 x 3 cm. No solid masses appreciated. There is evidence of a mildly complex 2.7 x 1.7 x 1.9 centimeter hypoechoic cyst in the left ovary. This may reflect resolving follicular cyst or small hemorrhagic cyst. Normal flow. FREE FLUID: There is evidence of nonspecific free fluid in the anterior and posterior pelvis. This is slightly more than expected for physiologic fluid. This therefore may reflect sequela of ruptured cyst. Other etiologies not excluded. OTHER FINDINGS: None. IMPRESSION: Mildly complex left ovarian cyst. Differential would include involuting follicular cyst and/or small hemorrhagic cyst. Nonspecific fluid in the pelvis. No appreciable ultrasound evidence of torsion. Please note beta HCG laboratory value has not been provided. If beta HCG laboratory value and test are positive, ectopic cannot be excluded. 11:10 Patient is significantly improved c/o mild pain in left lower abdomen. Labs, urine, and US reviewed consistent with ruptured ovarian cyst. Scribe Attestation: Documented by Lorena Paz acting as a scribe for Chelsey Zelaya MD. Provider Attestation: All medical record entries made by the Scribe were at my direction and personally dictated by me. I have reviewed the chart and agree that the record accurately reflects my personal performance of the history, physical exam, medical decision making, and the department course for this patient. I have also personally directed, reviewed, and agree with the discharge instructions and disposition. Disposition Doctor Will See Patient In The: Office Counseled Patient/Family Regarding: Studies Performed, Diagnosis, Need For Followup - Clinical Impression Clinical Impression: Left ovarian cyst - POA Present On Arrival: None - Disposition Referrals: [facility] [place] [Outside] Disposition: Routine/Home Disposition Time: 11:14 Condition: GOOD Additional Instructions: Take your medications as instructed. Follow up with your PCP in 2-3 days. Prescriptions: Tramadol HCl [Ultram] 50 mg PO TID PRN #15 tablet PRN Reason: Pain, Severe (8-10) Instructions: Ovarian Cysts Forms: [facility] ED School/Work Excuse
--- NOTE | 2018-01-17 10:25 | US ---
HISTORY: pelvic pain COMPARISON: None available. TECHNIQUE: Real-time transabdominal and transvaginal ultrasound examination of the pelvis were performed. FINDINGS: UTERUS: Measures 8.5 x 6.1 x 4.9 cm. Normal in size and appearance. No fibroid or other mass lesion seen. ENDOMETRIUM: Measures 10 mm in diameter. Unremarkable. CERVIX: No cervical abnormality identified. RIGHT OVARY: Measures 4.1 x 4.5 x 2.8 cm. No solid mass. Normal flow. A few small follicles are noted. LEFT OVARY: Measures 4.4 x 4.3 x 3 cm. No solid masses appreciated. There is evidence of a mildly complex 2.7 x 1.7 x 1.9 centimeter hypoechoic cyst in the left ovary. This may reflect resolving follicular cyst or small hemorrhagic cyst. Normal flow. FREE FLUID: There is evidence of nonspecific free fluid in the anterior and posterior pelvis. This is slightly more than expected for physiologic fluid. This therefore may reflect sequela of ruptured cyst. Other etiologies not excluded. OTHER FINDINGS: None. IMPRESSION: Mildly complex left ovarian cyst. Differential would include involuting follicular cyst and/or small hemorrhagic cyst. Nonspecific fluid in the pelvis. No appreciable ultrasound evidence of torsion. Please note beta HCG laboratory value has not been provided. If beta HCG laboratory value and test are positive, ectopic cannot be excluded.
[2018-01-17 10:40] VITALS: BP 91/56; PULSE 66; TEMP 98.1
[2018-01-17 10:59] VITALS: O2SAT 99
[2018-01-17] MEDS ORDERED: Oxycodone/Acetaminophen 5/325 mg Tab PO ONE (11:04)
[2018-01-17] MEDS ORDERED: Oxycodone/Acetaminophen 5/325 mg Tab ONE (11:32)
== END 2018-01-17 11:51 | disposition home or self-care (01) ==
LOC: H.ER 04:47
DX: N83.202 Unspecified ovarian cyst, left side (principal); J45.909 Unspecified asthma, uncomplicated; F17.200 Nicotine dependence, unspecified, uncomplicated
CPT/HCPCS: 76830; 76856; 80053; 81003; 81025; 83690; 85025; 99284; J1885; J2405; J7040

== ENCOUNTER 2018-03-26 05:03 | Emergency (ER) | payer SELFPAY ==
[2018-03-26 05:04] VITALS: BMI 25.7
[2018-03-26 05:14] VITALS: BP 119/81; RESP 16; TEMP 97.7
--- NOTE | 2018-03-26 06:08 | ED PDOC ---
HPI: Female Pain Time Seen by Provider: 03/26/18 05:18 Chief Complaint (Nursing): Female Genitourinary Chief Complaint (Provider): Vaginal Foreign Body History Per: Patient History/Exam Limitations: no limitations Additional Complaint(s): 28y/o female, presents to ED for evaluation of "growth" in her vagina for the past 1.5 weeks. She states the growth has been progressively enlarging and now protruding from her vagina. She denies any vaginal pain, urinary symptoms, incontinence, fever, chills, abdominal pain, nausea, vomiting, and diarrhea. She also denies any vaginal bleeding or discharge. Patient does admit to 2 male sexual partners, and last encounter was 3 weeks ago. She also reports a history of chlamydia infection 5 years ago as well. No other complaints at this time. No medications were taken prior to arrival. PMD: None LMP: yesterday Past Medical History Reviewed: Historical Data, Nursing Documentation, Vital Signs Vital Signs: Last Vital Signs Temp 97.7 F 03/26/18 05:10 Pulse 106 H 03/26/18 05:10 Resp 16 03/26/18 05:10 BP 119/81 03/26/18 05:10 Pulse Ox 98 03/26/18 05:10 - Medical History PMH: Asthma - Surgical History Other surgeries: "laser to kidney" as child - Family History Family History: States: Unknown Family Hx - Home Medications Home Medications: Ambulatory Orders Medication Instructions Recorded Albuterol Sulfate [Albuterol 3 ml IH QID PRN #30 roxy 09/25/14 Sulfate 2.5mg/3 ml 0.083%] Oseltamivir [Tamiflu] 75 mg PO DAILY 7 Days cap 09/25/14 Albuterol Sulfate [Ventolin Hfa] 2 puff IH QID PRN #1 unit 06/21/15 Amoxicillin [Amoxil] 875 mg PO BID #14 tab 09/14/15 Loratadine/Pseudoephedrine S 1 t12 PO BID #20 t12 09/14/15 [Claritin-D 12Hr 5 mg-120 mg] Azithromycin [Zithromax Z-Jose] 250 mg PO DAILY #5 tab 12/01/15 Dextromethorphan HBr [Cough 15 mg PO BID #10 capsule 12/01/15 Control] Albuterol HFA [Ventolin HFA 90 2 puff IH [id number] PRN #60 puff 08/12/16 mcg/actuation (8 g)] Naproxen 500 mg PO BID PRN #30 tab 08/12/16 Cephalexin [Keflex] 1 tab PO QID #28 capsule 11/12/16 Naproxen [Naprosyn] 500 mg PO BID PRN #30 tab 04/09/17 Famotidine 1 - 2 tab PO DAILY PRN #15 tablet 06/15/17 Cephalexin [Keflex] 500 mg PO BID #14 capsule 07/24/17 Doxycycline Monohydrate 100 mg PO BID #14 capsule 07/29/17 Ibuprofen [Motrin] 600 mg PO Q8 #30 tab 09/11/17 Tramadol HCl [Ultram] 50 mg PO TID PRN #15 tablet 01/17/18 Metronidazole [Flagyl] 500 mg PO Q6 #28 tab 03/26/18 - Allergies Allergies/Adverse Reactions: Allergies Allergy/AdvReac Type Severity Reaction Status Date / Time fruits Allergy URTICARIA Uncoded 01/17/18 05:00 Review of Systems ROS Statement: Except As Marked, All Systems Reviewed And Found Negative Constitutional: Negative for: Fever, Chills Cardiovascular: Negative for: Chest Pain Respiratory: Negative for: Shortness of Breath Gastrointestinal: Negative for: Abdominal Pain Genitourinary Female: Positive for: Other (foreign body in vagina). Negative for: Vaginal Discharge, Vaginal Bleeding Physical Exam - Reviewed Nursing Documentation Reviewed: Yes Vital Signs Reviewed: Yes - Physical Exam Comments: GENERALIZED APPEARANCE: Patient is awake, alert, oriented x3 in no acute distress. SKIN: Warm, dry; (-) cyanosis. EYES: (-) conjunctival pallor, (-) scleral icterus. ENMT: Mucous membranes moist. NECK: Supple, FROM CHEST AND RESPIRATORY: (-) rales, (-) rhonchi, (-) wheezes; breath sounds equal bilaterally. Speaking in full sentences, respirations even and nonlabored. HEART AND CARDIOVASCULAR: (-) irregularity; (-) murmur, (-) gallop. ABDOMEN AND GI: Soft, (-) tenderness (-) guarding (-) distention (-) rebound (- ) CVA tenderness. PELVIC: Normal external genitalia; Brown colored, cotton foreign body protruding from introitus. Upon removal on FB (which was tampon), another tampon noted in the vaginal vault which was removed and revealed entire vaginal canal with yellow/green film with a strong, foul odor. Normal cervix (-) bleeding. (-) adnexal tenderness. EKTA Barnes was present with me during the entire examination. EXTREMITIES: (-) deformity. - ECG O2 Sat by Pulse Oximetry: 98 (RA) Pulse Ox Interpretation: Normal Medical Decision Making Medical Decision Making: Impression: Foreign body in vaginal canal Plan: -- Foreign body removed x 2 (tampons) from vaginal canal. Remainder canal visualized after removal and was anatomically normal despite odorous film. Patient given Flagyl 500mg PO and cultures sent. On exam, patient remains AAOx3, in no acute distress. Lungs clear to auscultation, cardiac RRR, abdomen soft, non-tender, repeat neuro exam shows no focal findings. Repeat HR: 85. Stable for discharge. 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 Advised to take medication as prescribed. Return to the emergency room at any time for any new or worsening symptoms. Patient states she fully agrees with and understands discharge instructions. States that she agrees with the plan and disposition. Verbalized and repeated discharge instructions and plan. I have given the patient opportunity to ask any additional questions. Scribe Attestation: Documented by Lorena Paz, acting as a scribe for RICH Vargas Provider Scribe Attestation: All medical record entries made by the Scribe were at my direction and personally dictated by me. I have reviewed the chart and agree that the record accurately reflects my personal performance of the history, physical exam, medical decision making, and the department course for this patient. I have also personally directed, reviewed, and agree with the discharge instructions and disposition. Disposition - Clinical Impression Clinical Impression: Foreign body in vagina - Patient ED Disposition Is Patient to be Admitted: No Counseled Patient/Family Regarding: Diagnosis, Need For Followup, Rx Given - [facility] Disposition: Routine/Home Disposition Time: 05:45 Condition: STABLE Additional Instructions: [facility]2 DAYS WITHOUT FAIL. RETURN TO ED WITH ANY NEW OR WORSENING SYMPTOMS. Prescriptions: Metronidazole [Flagyl] 500 mg PO Q6 #28 tab Instructions: Vaginitis, Removal of Foreign Body in Skin Forms: [employer] (Citizen Of [place]) Print Language: UKRAINIAN - POA Present On Arrival: None Results - Lab Results Lab Results: 03/26/18 12:00 C.trachomatis RNA (TMA) Not detected N.gonorrhoeae RNA (TMA) Not detected
[2018-03-26 06:17] VITALS: PULSE 85
[2018-03-26 06:27] VITALS: O2SAT 98
== END 2018-03-26 06:16 | disposition home or self-care (01) ==
LOC: H.ER 05:03
DX: T19.2XXA Foreign body in vulva and vagina, initial encounter (principal); J45.909 Unspecified asthma, uncomplicated; Z98.890 Other specified postprocedural states

== ENCOUNTER 2018-06-12 12:48 | Emergency (ER) | payer OTHER ==
[2018-06-12 12:49] VITALS: BMI 25.7
--- NOTE | 2018-06-12 13:43 | ED PDOC ---
Lower Extremity Pain/Injury Time Seen by Provider: 06/12/18 13:00 Chief Complaint (Nursing): Lower Extremity Problem/Injury Chief Complaint (Provider): Right Ankle Pain History Per: Patient History/Exam Limitations: no limitations Onset/Duration Of Symptoms: Days (x1) Current Symptoms Are (Timing): Still Present Additional Complaint(s): 28 year old female presents to the ED for evaluation of right ankle pain and swelling. Patient states that last night she twisted her ankle in sneakers, initially having to limp. She notes icing the area, but upon waking up this morning, the worsening pain and swelling prompted the ED visit. At this time, she is non-weight bearing secondary to her symptoms. PMD: none provided Past Medical History Reviewed: Historical Data, Nursing Documentation, Vital Signs Vital Signs: Last Vital Signs Temp 98.1 F 06/12/18 13:04 Pulse 82 06/12/18 13:04 Resp 20 06/12/18 13:04 BP 100/64 06/12/18 13:09 Pulse Ox 98 06/12/18 13:04 - Medical History PMH: Asthma - Surgical History Surgical History: No Surg Hx - Family History Family History: States: Unknown Family Hx - Home Medications Home Medications: Ambulatory Orders Medication Instructions Recorded Albuterol Sulfate [Albuterol 3 ml IH QID PRN #30 roxy 09/25/14 Sulfate 2.5mg/3 ml 0.083%] Oseltamivir [Tamiflu] 75 mg PO DAILY 7 Days cap 09/25/14 Albuterol Sulfate [Ventolin Hfa] 2 puff IH QID PRN #1 unit 06/21/15 Amoxicillin [Amoxil] 875 mg PO BID #14 tab 09/14/15 Loratadine/Pseudoephedrine S 1 t12 PO BID #20 t12 09/14/15 [Claritin-D 12Hr 5 mg-120 mg] Azithromycin [Zithromax Z-Jose] 250 mg PO DAILY #5 tab 12/01/15 Dextromethorphan HBr [Cough 15 mg PO BID #10 capsule 12/01/15 Control] Albuterol HFA [Ventolin HFA 90 2 puff IH [id number] PRN #60 puff 08/12/16 mcg/actuation (8 g)] Naproxen 500 mg PO BID PRN #30 tab 08/12/16 Cephalexin [Keflex] 1 tab PO QID #28 capsule 11/12/16 Naproxen [Naprosyn] 500 mg PO BID PRN #30 tab 04/09/17 Famotidine 1 - 2 tab PO DAILY PRN #15 tablet 06/15/17 Cephalexin [Keflex] 500 mg PO BID #14 capsule 07/24/17 Doxycycline Monohydrate 100 mg PO BID #14 capsule 07/29/17 Ibuprofen [Motrin] 600 mg PO Q8 #30 tab 09/11/17 Tramadol HCl [Ultram] 50 mg PO TID PRN #15 tablet 01/17/18 Metronidazole [Flagyl] 500 mg PO Q6 #28 tab 03/26/18 Ibuprofen [Motrin] 600 mg PO Q6 #20 tab 06/12/18 - Allergies Allergies/Adverse Reactions: Allergies Allergy/AdvReac Type Severity Reaction Status Date / Time fruits Allergy URTICARIA Uncoded 01/17/18 05:00 Review of Systems ROS Statement: Except As Marked, All Systems Reviewed And Found Negative Musculoskeletal: Positive for: Other (right ankle pain and swelling) Physical Exam - Reviewed Nursing Documentation Reviewed: Yes Vital Signs Reviewed: Yes - Physical Exam Appears: Positive for: No Acute Distress Head Exam: Positive for: ATRAUMATIC, NORMOCEPHALIC Skin: Positive for: Normal Color, Warm Cardiovascular/Chest: Positive for: Regular Rate, Rhythm. Negative for: Murmur Respiratory: Positive for: Normal Breath Sounds. Negative for: Accessory Muscle Use, Respiratory Distress Pulses-Dorsalis Pedis (L): 2+ Pulses-Dorsalis Pedis (R): 2+ Extremity: Positive for: Tenderness (tenderness and mild edema below right lateral malleolus; no ecchymosis), Other (distal sensation intact) Neurologic/Psych: Positive for: Alert, Oriented (x3). Negative for: Motor/ Sensory Deficits - ECG O2 Sat by Pulse Oximetry: 98 (RA) Pulse Ox Interpretation: Normal Medical Decision Making Medical Decision Making: Time: 1404 Initial Impression: ankle sprain Initial Plan: --XR right ankle --Motrin 600 mg PO 1450 Ankle XR Impression: Soft tissue swelling without acute articular or osseous abnormality. 1500 Pt is to be placed in an aircast at this time. Will be given crutches and educated on how to use them by EKTA Beard. Scribe Attestation: Documented by Iris Toledo, acting as a scribe for Lauren Bermudez PA-C. Provider Scribe Attestation: All medical record entries made by the Scribe were at my direction and personally dictated by me. I have reviewed the chart and agree that the record accurately reflects my personal performance of the history, physical exam, medical decision making, and the department course for this patient. I have also personally directed, reviewed, and agree with the discharge instructions and disposition. Disposition - Clinical Impression Clinical Impression: Ankle injury - Patient ED Disposition Is Patient to be Admitted: No - Disposition Disposition: Routine/Home Disposition Time: 15:17 Condition: STABLE Prescriptions: Ibuprofen [Motrin] 600 mg PO Q6 #20 tab Instructions: Ankle Sprain Forms: [employer] ([place])
--- NOTE | 2018-06-12 14:52 | RAD ---
Date of service: 06/12/2018 PROCEDURE: Right Ankle Radiographs. HISTORY: pain s/p twist injury COMPARISON: None FINDINGS: BONES: Normal. No fracture. JOINTS: Normal. No osteoarthritis. Ankle mortise maintained. Talar dome intact SOFT TISSUES: Lateral soft tissue swelling without distal fibular or talar abnormality. OTHER FINDINGS: None. IMPRESSION: Soft tissue swelling without acute articular or osseous abnormality.
[2018-06-12 17:09] VITALS: BP 122/70; PULSE 67; RESP 18; TEMP 98; O2SAT 99
== END 2018-06-12 15:45 | disposition home or self-care (01) ==
LOC: H.ER 12:48
DX: S99.911A Unspecified injury of right ankle, initial encounter (principal); X50.9XXA Other and unspecified overexertion or strenuous movements or postures, initial encounter; Y92.89 Other specified places as the place of occurrence of the external cause